=== PATIENT | male | born 1960 | race Caucasian/White ===

== ENCOUNTER 2017-01-01 16:19 | Observation (INO) | payer BC, MEDICARE, OTHER ==
[~2017-01-01 16:19] MED LIST: AMITRIPTYLINE100 M1 PO; ASPIRIN EC81 MG PO; ASPIRIN81 MG PO; BRILINTA90 M1 PO; CYMBALTA60 MG PO; HUMALOG100 UNITS/ SC; INVOKAMET 150-1 EAC1 PO; LEVAQUIN750 MG PO; LIPITOR40 M1 PO; METOPROLOL TART25 M1 PO; NIFEDIPINE ER30 M1 PO; NITROGLYCERIN0.4 M2 SL; NORCO 5-325 TA1 EACH PO; PREVACID30 MG PO; TESSALON PERLE100 MG PO; TYLENOL325 MG PO; ZESTRIL2.5 M3 PO
[2017-01-01] MEDS ORDERED: RANITIDINE HCL150 M2 PO (16:41)
[2017-01-01] MEDS ORDERED: NEURONTIN300 M1 PO (16:42)
[2017-01-01] MEDS ORDERED: RESTASIS0.4 ML/EA EACH EYE (16:42)
[2017-01-01] MEDS ORDERED: PROTONIX40 M2 PO (16:42)
[2017-01-01 16:46] LABS: BASO % 0.5 % (0-2); BASO ABSOLUTE COUNT 0.1 tho/cmm (0.0-0.2); EOS % 4.1 % (0-7); EOSINOPHIL ABSOLUTE COUNT 0.4 tho/cmm (0.0-0.7); HCT-HEMATOCRIT 48.1 % (36.0-53.5); HGB-HEMOGLOBIN 17.5 gm/dl (13.5-17.0); IMMATURE GRANULOCYTES ABSOLUTE 0.02 tho/cmm (0-0.03); IMMATURE GRANULOCYTES PERCENT 0.2 % (0-0.3); LYMPH % 35.8 % (20-45); LYMPH ABSOLUTE COUNT 3.4 tho/cmm (0.8-4.5); MCH (MEAN CORPUSCULAR HGB) 32.6 pg (28.0-32.0); MCHC MEAN CORPUSCULAR HGB CONC 36.4 % (32.0-36.0); MCV (MEAN CELL VOLUME) 89.6 fl (82.0-96.0); MEAN PLATELET VOLUME 10.4 cmc (9.4-12.4); MONO % 6.9 % (0-12); MONOCYTE ABSOLUTE COUNT 0.7 tho/cmm (0.0-1.2); NEUTROPHIL ABSOLUTE COUNT 4.9 tho/cmm (1.6-8.0); NEUTROPHIL-AUTOMATED 4.9 tho/cmm (1.6-8.0); NEUTROPHILS % 52.5 % (40-80); PLATELET COUNT 178 tho/cmm (150-450); RED BLOOD COUNT 5.37 mil/cmm (4.40-5.70); RED CELL DISTRIBUTION WIDTH 12.5 % (12.4-16.4); WHITE BLOOD COUNT 9.4 tho/cmm (4.0-10.0)
[2017-01-01 17:03] LABS: ANION GAP 14 mmol/L (0-20); BLOOD UREA NITROGEN 17 mg/dl (6-24); CALCIUM 9.1 mg/dl (8.5-10.5); CARBON DIOXIDE-VENOUS 23 mmol/L (22-32); CHLORIDE 106 mmol/l (96-110); CREATININE 1.04 mg/dl (0.60-1.30); GLUCOSE 217 mg/dL (70-110); POTASSIUM 4.6 mmol/L (3.7-5.1); SODIUM 138 mmol/L (135-145); eGFR VALUE FOR BLACK >90 mL/Min
[2017-01-03 06:22] LABS: BASO % 0.6 % (0-2); BASO ABSOLUTE COUNT 0.1 tho/cmm (0.0-0.2); EOSINOPHIL ABSOLUTE COUNT 0.4 tho/cmm (0.0-0.7); HCT-HEMATOCRIT 47.4 % (36.0-53.5); HGB-HEMOGLOBIN 16.8 gm/dl (13.5-17.0); IMMATURE GRANULOCYTES ABSOLUTE 0.01 tho/cmm (0-0.03); IMMATURE GRANULOCYTES PERCENT 0.1 % (0-0.3); LYMPH % 44.2 % (20-45); LYMPH ABSOLUTE COUNT 3.7 tho/cmm (0.8-4.5); MCHC MEAN CORPUSCULAR HGB CONC 35.4 % (32.0-36.0); MCV (MEAN CELL VOLUME) 90.3 fl (82.0-96.0); MEAN PLATELET VOLUME 10.2 cmc (9.4-12.4); MONO % 8.1 % (0-12); MONOCYTE ABSOLUTE COUNT 0.7 tho/cmm (0.0-1.2); NEUTROPHIL ABSOLUTE COUNT 3.5 tho/cmm (1.6-8.0); NEUTROPHIL-AUTOMATED 3.5 tho/cmm (1.6-8.0); PLATELET COUNT 165 tho/cmm (150-450); RED BLOOD COUNT 5.25 mil/cmm (4.40-5.70); RED CELL DISTRIBUTION WIDTH 12.5 % (12.4-16.4); WHITE BLOOD COUNT 8.4 tho/cmm (4.0-10.0)
[2017-01-03 06:38] LABS: ANION GAP 10 mmol/L (0-20); BLOOD UREA NITROGEN 17 mg/dl (6-24); CALCIUM 9.2 mg/dl (8.5-10.5); CARBON DIOXIDE-VENOUS 30 mmol/L (22-32); CHLORIDE 104 mmol/l (96-110); CREATININE 1.02 mg/dl (0.60-1.30); GLUCOSE 153 mg/dL (70-110); POTASSIUM 4.4 mmol/L (3.7-5.1); SODIUM 140 mmol/L (135-145); eGFR VALUE FOR BLACK >90 mL/Min
[2017-01-03] MEDS ORDERED: RANEXA500 M1 PO (12:52)
== END 2017-01-03 13:37 ==
LOC: EDMED 16:19 → EMR2 18:22 → PCUB 19:40
PROVIDERS: Emergency Medicine; Internal Medicine Cardiovascular Disease; ADMIT Internal Medicine
PROC: B2111ZZ Fluoroscopy of Multiple Coronary Arteries using Low Osmolar Contrast (ICD-10-PCS; principal; 2017-01-03)
DX: I25.10 Atherosclerotic heart disease of native coronary artery without angina pectoris (principal); E11.9 Type 2 diabetes mellitus without complications; I10 Essential (primary) hypertension; E78.5 Hyperlipidemia, unspecified; K21.9 Gastro-esophageal reflux disease without esophagitis; Z79.4 Long term (current) use of insulin; Z79.82 Long term (current) use of aspirin; Z79.899 Other long term (current) drug therapy; Z87.891 Personal history of nicotine dependence; Z94.7 Corneal transplant status; Z98.890 Other specified postprocedural states
CPT/HCPCS: A9500; C1894; C9113; G0378; J1644; J1650; J2250; J2785; J3010; Q9967